=== PATIENT | female | born 1995 | race Two or more races ===

== ENCOUNTER 2023-09-09 11:40 | Emergency (ER) | payer OTHER ==
[~2023-09-09] VITALS: Ht 170.2 cm; Wt 58.1 kg
[2023-09-09 12:35] VITALS: BP 96/56; PULSE 100; RESP 18; TEMP 99.6; O2SAT 100
[2023-09-09 13:48] LABS: COVID19 ANTIGEN SOFIA FIA NEGATIVE (NEGATIVE)
[2023-09-09 14:05] LABS: Rapid Influenza B Negative (Negative)
[2023-09-09 14:07] LABS: Rapid Influenza A Positive (Negative)
== END 2023-09-09 14:28 | disposition home or self-care (01) ==
LOC: ER 11:40
DX: O26.891 Other specified pregnancy related conditions, first trimester (principal); J10.1 Influenza due to other identified influenza virus with other respiratory manifestations; Z20.822 Contact with and (suspected) exposure to COVID-19; Z3A.10 10 weeks gestation of pregnancy
CPT/HCPCS: 36415; 87426; 87804